=== PATIENT | female | born 1955 | race Caucasian/White ===

== ENCOUNTER 2019-03-06 11:51 | Day surgery (SDC) | payer OTHER ==
[2019-03-06] MEDS ORDERED: FENTAnyl 50 MCG/ML VIAL (14:15)
[2019-03-06] MEDS ORDERED: MIDAZOLAM 1 MG/ML 2 ML INJ ×2 (14:15)
== END 2019-03-06 15:57 | disposition home or self-care (01) ==
LOC: GIL 11:51
DX: Z12.11 Encounter for screening for malignant neoplasm of colon (principal); D12.3 Benign neoplasm of transverse colon; I10 Essential (primary) hypertension; E78.5 Hyperlipidemia, unspecified
CPT/HCPCS: 45380; 88305